=== PATIENT | female | born 1945 | race Caucasian/White ===

== ENCOUNTER 2021-05-20 13:29 | Inpatient (IN) | payer OTHER ==
[~2021-05-20] VITALS: Ht 154.9 cm; Wt 77.9 kg
[2021-05-20 14:33] LABS: BASOPHILS ABSOLUTE AUTO 0.05 K/mm3 (0.00-0.23); BASOPHILS PERCENT AUTO 1 % (0-2); EOSINOPHILS ABSOLUTE AUTO 0.05 K/mm3 (0.00-0.68); EOSINOPHILS PERCENT AUTO 1 % (0-6); Hematocrit 43.7 % (33.0-51.0); Hemoglobin 14.6 g/dL (11.5-16.0); IMMATURE GRAN ABSOLUTE AUTO 0.03 K/mm3 (0.00-0.10); IMMATURE GRAN PERCENT AUTO 0 % (0-1); LYMPHOCYTES ABSOLUTE AUTO 1.53 K/mm3 (0.84-5.20); LYMPHOCYTES PERCENT AUTO 18 % (21-46); MONOCYTES ABSOLUTE AUTO 0.41 K/mm3 (0.16-1.47); MONOCYTES PERCENT AUTO 5 % (4-13); Mean Corpuscular HGB 33.1 pg (26.0-34.0); Mean Corpuscular HGB Conc 33.4 g/dL (31.5-36.5); Mean Corpuscular Volume 99 fL (80-100); Mean Platelet Volume 11.4 fL (9.1-12.4); NEUTROPHILS ABSOLUTE AUTO 6.63 K/mm3 (1.96-9.15); NEUTROPHILS PERCENT AUTO 76 % (41-73); Platelet Count 149 K/mm3 (150-400); RDW Coefficient Variation 14.4 % (11.7-14.2); RDW Standard Deviation 52.1 fL (35.1-46.3); Red Blood Cell Count 4.41 M/mm3 (3.80-5.20)
[2021-05-20 14:50] LABS: Alanine Aminotransfer (ALT/SGP 60 U/L (12-78); Albumin, Blood 3.4 g/dL (3.4-5.0); Albumin/Globulin Ratio 0.7 (0.8-1.8); Alk Phos 291 U/L (50-136); Anion Gap 8 mmol/L (6-16); Aspartate Aminotrans (AST/SGOT 104 U/L (12-37); Bilirubin, Total 1.9 mg/dL (0.1-1.0); Blood Urea Nitrogen 10 mg/dL (8-24); Bun/Creatinine Ratio 11.8 (12.0-20.0); CO2, Blood 26 mmol/L (21-32); Calcium, Blood 10.7 mg/dL (8.5-10.1); Chloride, Blood 104 mmol/L (98-108); Creatinine, Blood 0.85 mg/dL (0.40-1.00); Globulin, Blood 4.9 g/dL (2.2-4.0); Glomerular Filtration Rate >60 (60-); Glucose, Blood 210 mg/dL (70-99); Potassium, Blood 4.1 mmol/L (3.5-5.5); Sodium, Blood 138 mmol/L (136-145); Total Protein, Blood 8.3 g/dL (6.4-8.2)
[2021-05-20 17:32] LABS: Anti-Xa UFH, PHA Monitoring <0.10 IU/mL; International Normalized Ratio 1.37; Prothrombin Time Results 14.1 Sec (9.7-11.5)
--- NOTE | 2021-05-20 22:07 | NUR ---
UPDATE/PT TRANSFER TO ICU PT ARRIVED TO UNIT FROM ED NO LONGER ON NITRO GTT. PT ON HEPARIN GTT AT THIS TIME. PT HYPERTENSIVE UPON ARRIVAL, SEE EHR. NO CP AT THIS TIME. OXYGEN SATURATION OVER 95% ON RA. ON TELE PT HAS ST ELEVATION. SEMICONDUCTOR BONDER NOTIFIED AUTO CARRIER DRIVER AND NO ORDER WAS PLACED TO D/C NITRO GTT PRIOR TO ARRIVAL TO UNIT. PLAN FOR PT TO CONT NITRO GTT, NURSING PRODUCT DEVELOPMENT SCIENTIST NOTIFIED. PT NOW ICU STATUS. PT'S FAMILY NOTIFIED OF PT TRANSFER TO HIGHER LEVEL OF CARE. PT'S SISTER HAS PT'S HOME MEDICATIONS, PT IS NOT AWARE. ICU NURSE NOTIFIED. REPORT GIVEN TO CELIO MESSINA. PT TRANPOSRTED BY WHEELCHAIR WITH ALL BELONGINGS BY MITCH AND CELIO FOSTER. ICU SEMICONDUCTOR BONDER HAS PT CHART.
[2021-05-20] MEDS ORDERED: GLIP5 PO (22:27)
[2021-05-20] MEDS ORDERED: POTCHL20ER PO (22:28)
[2021-05-20] MEDS ORDERED: Lisinopril2.5 MG PO (22:28)
[2021-05-20] MEDS ORDERED: HYDRA25 PO (22:29)
[2021-05-20] MEDS ORDERED: BENAZEPRIL-HCT1 EAC2 PO (22:30)
--- NOTE | 2021-05-20 23:04 | NUR ---
ASSUMED CARE AT 2135 PATIENT TRANSFERRED VIA WHEELCHAIR FROM PCU 2 TO ICU 4. TRANSFERRED SBA FROM WHEELCHAIR TO BED. PATIENT IS ALERT AND ORIENTED X4. FOLLOWS COMMANDS, MOVES ALL EXTREMETIES. 02 SATS 98% ON RA, DENIES SOB WITH EXERTION. HR SR @ 70s. PATIENT DENIES CP/PRESSURE UPON ARRIVAL TO UNIT. BP HYPERTENSIVE SYSTOLIC RANGING FROM 150s-180s. TITRATING NITRO PER ORDERS. HEPARIN gtt INF. PATIENT ABLE TO REPOSITION SELF IN BED. COMPLETED MED LIST WITH FAMILY MEMBER OVER THE PHONE WITH PATIENT. SEE SHIFT ASSESSMENT FOR MORE DETAILS.
[2021-05-21 03:29] LABS: BASOPHILS ABSOLUTE AUTO 0.04 K/mm3 (0.00-0.23); BASOPHILS PERCENT AUTO 1 % (0-2); EOSINOPHILS ABSOLUTE AUTO 0.03 K/mm3 (0.00-0.68); EOSINOPHILS PERCENT AUTO 0 % (0-6); Hemoglobin 12.1 g/dL (11.5-16.0); IMMATURE GRAN ABSOLUTE AUTO 0.01 K/mm3 (0.00-0.10); IMMATURE GRAN PERCENT AUTO 0 % (0-1); LYMPHOCYTES ABSOLUTE AUTO 1.51 K/mm3 (0.84-5.20); LYMPHOCYTES PERCENT AUTO 20 % (21-46); MONOCYTES PERCENT AUTO 7 % (4-13); Mean Corpuscular HGB 33.2 pg (26.0-34.0); Mean Corpuscular HGB Conc 33.6 g/dL (31.5-36.5); Mean Corpuscular Volume 99 fL (80-100); Mean Platelet Volume 11.3 fL (9.1-12.4); NEUTROPHILS ABSOLUTE AUTO 5.34 K/mm3 (1.96-9.15); NEUTROPHILS PERCENT AUTO 72 % (41-73); Platelet Count 86 K/mm3 (150-400); RDW Coefficient Variation 14.2 % (11.7-14.2); RDW Standard Deviation 51.8 fL (35.1-46.3); Red Blood Cell Count 3.64 M/mm3 (3.80-5.20); White Blood Cell Count 7.43 K/mm3 (4.00-11.30)
[2021-05-21 03:51] LABS: Alanine Aminotransfer (ALT/SGP 57 U/L (12-78); Albumin, Blood 2.6 g/dL (3.4-5.0); Albumin/Globulin Ratio 0.7 (0.8-1.8); Alk Phos 199 U/L (50-136); Anion Gap 6 mmol/L (6-16); Aspartate Aminotrans (AST/SGOT 216 U/L (12-37); Bilirubin, Total 1.4 mg/dL (0.1-1.0); Blood Urea Nitrogen 11 mg/dL (8-24); Bun/Creatinine Ratio 13.5 (12.0-20.0); CHOL/HDL RATIO 1.8; CO2, Blood 26 mmol/L (21-32); Calcium, Blood 9.9 mg/dL (8.5-10.1); Chloride, Blood 107 mmol/L (98-108); Cholesterol 117 mg/dL (50-200); Creatinine, Blood 0.81 mg/dL (0.40-1.00); Globulin, Blood 3.9 g/dL (2.2-4.0); Glomerular Filtration Rate >60 (60-); Glucose, Blood 202 mg/dL (70-99); HDL Cholesterol 65 mg/dL (>39); LDL/HDL RATIO 0.6; Low Density Lipoprotein Chol 42 mg/dL (0-110); Potassium, Blood 4.1 mmol/L (3.5-5.5); Sodium, Blood 139 mmol/L (136-145); Thyroid Stimulating Hormone 0.981 uIU/mL (0.360-4.800); Total Protein, Blood 6.5 g/dL (6.4-8.2); Triglycerides 49 mg/dL (30-160); Very Low Density Lipoprot Chol 9 mg/dL (6-32)
--- NOTE | 2021-05-21 06:47 | NUR ---
SHIFT SUMMARY PATIENT IS ALERT AND ORIENTED X4. FOLLOWING COMMANDS, MOVES ALL EXTREMETIES, COOPERATIVE WITH CARE. 02 SATS 96% ON RA, DENIES SOB. HR SR @84. BP STABLE. NITRO GTT OFF AT APPROX 0200. NO COMPLAINTS OF CP/PRESSURE SINCE ARRIVAL TO THE UNIT. HEPARIN GTT INF. HOSPITALIST AND AWARE OF PATIENT DECREASED PLT COUNT, REPEAT CBC AT 1200. TROPONINS INCREASED, DR. GILLIAM AWARE, PLANS FOR DATA ACQUISITION TECHNICIAN AND ECHO THIS AM. PATIENT UP TO BSC TO URINATE. CALL LIGHT IN REACH.
[2021-05-21 07:02] LABS: Influenza A, PCR NEGATIVE (NEGATIVE); Influenza B, PCR NEGATIVE (NEGATIVE); Resp Syncytial Virus, PCR NEGATIVE (NEGATIVE); SARS-Cov-2 (COVID-19) PCR, MMC NEGATIVE (NEGATIVE)
--- NOTE | 2021-05-21 07:12 | NUR ---
Received report from Betsy PICKENS. Patient awake in bed and tearful. Dr Slater at bedside speaking with patient and getting consent for laborer cheesemaking. Patient is full code prior to laborer cheesemaking and after back will want DNR. She is alert and oriented and is able to communnicate her needs. She has bilateral 20ga IV in AC's. Left IV infusing NS TKO and right infusing Heparin at 15 units/kg/hr. DR Slater added Metoprolol.She is on RA and sats 99%. HR 80's and SR with significant ST elevation.
--- NOTE | 2021-05-21 07:38 | NUR ---
Patient called daughter and she left to [facility] at 07 on monitor, NS TKO and Heparin at 15 units/kg/hr
--- NOTE | 2021-05-21 09:52 | NUR ---
Patient returned from [facility] and has sheath in groin for access tomorro, ballooned Prox. Circ. Dressing intact and site WNL's, no swelling , oozing, or hematoma. She also has TR band to Right wrist with 12 cc of air, no swelling, oozing or hematoma, wrist support in place. Leg restrained with sheet and have educated patient on not moving for at least 2 hours.
--- NOTE | 2021-05-21 11:30 | NUR ---
Echo done and Dr Slater by. Patient remains supine and right groin site WNL's and TR band WNLs and will start to release air. QT over [address] Patient denies any chest pain or discomfort. Patient received bed bath and linen change.
[2021-05-21 12:47] LABS: BASOPHILS ABSOLUTE AUTO 0.03 K/mm3 (0.00-0.23); BASOPHILS PERCENT AUTO 1 % (0-2); EOSINOPHILS ABSOLUTE AUTO 0.03 K/mm3 (0.00-0.68); EOSINOPHILS PERCENT AUTO 1 % (0-6); Hematocrit 33.2 % (33.0-51.0); Hemoglobin 10.7 g/dL (11.5-16.0); IMMATURE GRAN ABSOLUTE AUTO 0.02 K/mm3 (0.00-0.10); IMMATURE GRAN PERCENT AUTO 0 % (0-1); LYMPHOCYTES ABSOLUTE AUTO 1.21 K/mm3 (0.84-5.20); LYMPHOCYTES PERCENT AUTO 24 % (21-46); MONOCYTES ABSOLUTE AUTO 0.37 K/mm3 (0.16-1.47); MONOCYTES PERCENT AUTO 7 % (4-13); Mean Corpuscular HGB Conc 32.2 g/dL (31.5-36.5); Mean Corpuscular Volume 103 fL (80-100); Mean Platelet Volume 11.5 fL (9.1-12.4); NEUTROPHILS ABSOLUTE AUTO 3.43 K/mm3 (1.96-9.15); NEUTROPHILS PERCENT AUTO 67 % (41-73); Platelet Count 77 K/mm3 (150-400); RDW Coefficient Variation 14.5 % (11.7-14.2); RDW Standard Deviation 54.6 fL (35.1-46.3); Red Blood Cell Count 3.24 M/mm3 (3.80-5.20); White Blood Cell Count 5.09 K/mm3 (4.00-11.30)
--- NOTE | 2021-05-21 13:43 | NUR ---
No chnages to sites and both WNL's. US of abdomen done. Patient tolerated being fed.
--- NOTE | 2021-05-21 15:26 | NUR ---
Changed RAC dressing as was leaking from Heparin infusion. She has been resting between care. Made vanilla shake and she tolerated well. Will put PowerGlide in and remove both IV's. She hasd been tolertaing laying flat. Removed 10cc of air so far and no bleeding. She denies any chest pain.Right groin site WNL's and TR band as well.
--- NOTE | 2021-05-21 17:44 | NUR ---
PowerGlide placed in [place] and 20 ga LAC removed. Took acouple cc of air out of TR band and started leaking and messaged hematoma out and reapplied 2 cc of air and stop bleeding, Right groin still intact and site WNL's. Patient getting assisstance eating dinner. CBG 287 and covered with 3 units. VSS. She continues to deniy any pain.
--- NOTE | 2021-05-21 19:26 | NUR ---
ASSUMED CARE AT 1900 PATIENT IS ALERT AND ORIENTED X4, FOLLOWING COMMANDS AND ABLE TO MOVE ALL EXTREMETIES. 02 SATS 97% ON RA, LS CLEAR TO DIMINISHED. HR SR @70s, BP STABLE. PATIENT DENIES CP/PRESURE. RIGHT RADIAL SITE WITH SMALL HEMATOMA JUST BELOW TR BAND. WILL DEFLATE TR BAND. RIGHT GROIN SITE WITH SHEATH STILL IN PLACE, SITE WNL, DRESSING C/D/I. PULSES STRONG TO ALL EXTREMETIES. PATIENT LAYING FLAT. HEPARIN gtt INFUSING. CALL LIGHT IN REACH. SEE SHIFT ASSESSMENT FOR MORE DETAIL.
--- NOTE | 2021-05-22 01:48 | NUR ---
TR BAND OFF AT 0145, CLEAR DRESSING IN PLACE. SOME BRUISING AROUND SITE AND SMALL HEMATOMA THAT IS UNCHNAGED FROM START OF SHIFT. ARM BOARD IN PLACE AND PATIENT INSTRUCTED NOT TO USE HER ARM.
[2021-05-22 04:32] LABS: BASOPHILS ABSOLUTE AUTO 0.03 K/mm3 (0.00-0.23); BASOPHILS PERCENT AUTO 1 % (0-2); EOSINOPHILS ABSOLUTE AUTO 0.08 K/mm3 (0.00-0.68); EOSINOPHILS PERCENT AUTO 1 % (0-6); Hematocrit 31.8 % (33.0-51.0); Hemoglobin 10.5 g/dL (11.5-16.0); IMMATURE GRAN ABSOLUTE AUTO 0.01 K/mm3 (0.00-0.10); IMMATURE GRAN PERCENT AUTO 0 % (0-1); LYMPHOCYTES ABSOLUTE AUTO 1.22 K/mm3 (0.84-5.20); LYMPHOCYTES PERCENT AUTO 22 % (21-46); MONOCYTES PERCENT AUTO 7 % (4-13); Mean Corpuscular HGB 33.4 pg (26.0-34.0); Mean Corpuscular Volume 101 fL (80-100); Mean Platelet Volume 11.7 fL (9.1-12.4); NEUTROPHILS ABSOLUTE AUTO 3.92 K/mm3 (1.96-9.15); NEUTROPHILS PERCENT AUTO 69 % (41-73); Platelet Count 73 K/mm3 (150-400); RDW Coefficient Variation 14.3 % (11.7-14.2); RDW Standard Deviation 52.7 fL (35.1-46.3); Red Blood Cell Count 3.14 M/mm3 (3.80-5.20); White Blood Cell Count 5.66 K/mm3 (4.00-11.30)
[2021-05-22 04:47] LABS: Anion Gap 4 mmol/L (6-16); Blood Urea Nitrogen 16 mg/dL (8-24); Bun/Creatinine Ratio 19.7 (12.0-20.0); CO2, Blood 27 mmol/L (21-32); Calcium, Blood 9.3 mg/dL (8.5-10.1); Chloride, Blood 107 mmol/L (98-108); Creatinine, Blood 0.81 mg/dL (0.40-1.00); Glomerular Filtration Rate >60 (60-); Glucose, Blood 210 mg/dL (70-99); Potassium, Blood 4.3 mmol/L (3.5-5.5); Sodium, Blood 138 mmol/L (136-145)
--- NOTE | 2021-05-22 05:33 | NUR ---
SHIFT SUMMARY PATIENT REMAINS ALERT AND ORIENTED X4. 02 SATS >95% ON RA. LS CLEAR TO DIM. HR SR @60s. BP STABLE. PATIENT DENIES CP/PRESSURE. HEPARIN gtt INF. RIGHT RADIAL SITE WITH CLEAR DRESSING AND ARM BOARD IN PLACE, SOME BRUISING AROUND SITE WITH SMALL HEMATOMA UNCHAGED FROM START OF SHIFT. REIGHT FEMORAL SITE WNL, DRESSING C/D/I. PULSES STRONG IN ALL EXTREMETIES. PATIENT USED BEDPAN. CONSTANT REMINDER TO NOT BEND LEGS. PATIENT SLEPT MOST THE NIGHT. CALL LIGHT IN REACH.
--- NOTE | 2021-05-22 07:30 | NUR ---
ASSUMED CARE REPORT FROM MAYURI PICKENS AT 0700. PT RESTING IN BED. DENIES CP, SOB OR OTHER COMPLAINTS. PLAN TO TAKE TO LEARNING SOLUTIONS SPECIALIST TOMORROW. HEPARIN GTT AT 15 UNITS/KG/HR. SHEATH TO RIGHT GROIN, NO SWELLING, HEMATOMA NOTED. RIGHT RADIAL ACCESS SITE c BRUISING, NO SWELLING. DRESSING C/D/I. SR, RATE 60'S. BP STABLE. WILL CONTINUE TO MONITOR.
--- NOTE | 2021-05-22 17:45 | NUR ---
SHIFT SUMMARY NO ACUTE CHANGES THIS SHIFT. HEPARIN GTT CONTINUES AT 15 UNITS/KG/HR. SHEATH TO RIGHT GROIN STABLE, NO HEMATOMA, SWELLING OR BRUISING NOTED. PLAN TO RETURN TO CANCER PROGRAM CONSULTANT IN AM, NPO AFTER 0000. VSS. WILL CONTINUE TO MONITOR UNTIL REPORT TO ONCOMING NURSE.
--- NOTE | 2021-05-22 19:00 | NUR ---
REPORT RECEIVED FROM CELIO WISE. BEDSIDE ASSESSMENT OF THE RIGHT GROIN SITE TOGETHER. NO EDEMA, NO OOZING, NO BRUISING NOTED. TO PRESSURE BAG. GOOD COLOR AND SENSATION AND PULSES IN THE LEG. HEPARIN GTT @ 15U/KG/HR.
[2021-05-23 00:08] LABS: HBSAG SCREEN Negative (Negative); HCV AB <0.1 (0.0-0.9); HEP A AB, IGM Positive (Negative); HEP B CORE AB, IGM Negative (Negative)
--- NOTE | 2021-05-23 00:16 | NUR ---
SHRUTI IS CONTINUING TO LIE FLAT WITH THE RIGHT GROIN SITE INTACT AND SET TO PRESSURE BAG. SHE IS USING THE BED ROSS FOR URINATION AND TOLERATING MOVEMENT WELL WITHOUT FLEXING THAT RIGHT HIP JOINT. THE ANTI-XA WAS JUST DRAWN AND SENT TO LAB, WILL AWAIT RESULTS AND ORDERS FROM PHARMACY. SHE IS LOOKING FORWARD TO HER PROCEDURE TOMORROW SO SHE NO LONGER HAS TO LAY FLAT.
[2021-05-23 04:17] LABS: BASOPHILS ABSOLUTE AUTO 0.02 K/mm3 (0.00-0.23); BASOPHILS PERCENT AUTO 0 % (0-2); EOSINOPHILS ABSOLUTE AUTO 0.09 K/mm3 (0.00-0.68); EOSINOPHILS PERCENT AUTO 1 % (0-6); Hematocrit 31.1 % (33.0-51.0); Hemoglobin 10.3 g/dL (11.5-16.0); IMMATURE GRAN ABSOLUTE AUTO 0.02 K/mm3 (0.00-0.10); IMMATURE GRAN PERCENT AUTO 0 % (0-1); LYMPHOCYTES PERCENT AUTO 21 % (21-46); MONOCYTES ABSOLUTE AUTO 0.41 K/mm3 (0.16-1.47); MONOCYTES PERCENT AUTO 7 % (4-13); Mean Corpuscular HGB 33.2 pg (26.0-34.0); Mean Corpuscular HGB Conc 33.1 g/dL (31.5-36.5); Mean Corpuscular Volume 100 fL (80-100); Mean Platelet Volume 11.5 fL (9.1-12.4); NEUTROPHILS ABSOLUTE AUTO 4.44 K/mm3 (1.96-9.15); NEUTROPHILS PERCENT AUTO 71 % (41-73); Platelet Count 77 K/mm3 (150-400); RDW Coefficient Variation 14.3 % (11.7-14.2); RDW Standard Deviation 52.5 fL (35.1-46.3); White Blood Cell Count 6.28 K/mm3 (4.00-11.30)
[2021-05-23 04:33] LABS: Anion Gap 4 mmol/L (6-16); Blood Urea Nitrogen 16 mg/dL (8-24); Bun/Creatinine Ratio 20.8 (12.0-20.0); CO2, Blood 26 mmol/L (21-32); Calcium, Blood 9.4 mg/dL (8.5-10.1); Chloride, Blood 110 mmol/L (98-108); Creatinine, Blood 0.77 mg/dL (0.40-1.00); Glomerular Filtration Rate >60 (60-); Glucose, Blood 189 mg/dL (70-99); Potassium, Blood 4.1 mmol/L (3.5-5.5); Sodium, Blood 140 mmol/L (136-145)
[2021-05-23 05:26] LABS: Alanine Aminotransfer (ALT/SGP 46 U/L (12-78); Aspartate Aminotrans (AST/SGOT 107 U/L (12-37)
--- NOTE | 2021-05-23 05:55 | NUR ---
SUMMARY: SHRUTI CONTINUES ON ROOM AIR, SATS >93%, HEART RATE STABLE RUNNING IN THE 60'S WITH BLOOD PRESSURE WNL, PULSES REMAIN PALPABLE, RIGHT GROIN SITE C/D/I, PT'S RIGHT ARM CONTINUES WITH BRUISING NOTED. PT HAS BEEN SUPINE AND NOT MOVING THE RIGHT LEG EXCEPT FOR SMALL MOVEMENTS WHEN GETTING ON AND OFF THE BED ROSS. SHE HAS BEEN SLEEPING ON AND OFF T/O THE NIGHT.
--- NOTE | 2021-05-23 06:38 | NUR ---
PT TO LEATHER WHITENER WITH TEAM. HEPARIN DISCONNECTED FOR TRANSPORT. DR. GILLIAM ALREADY IN TO SEE PATIENT.
--- NOTE | 2021-05-23 08:38 | NUR ---
AM NOTE... PT RETURNED FROM THE DIESEL TRUCK MECHANIC AT 0805, A&Ox4 A LITTLE SLEEPY. THE PT'S VS STABLE AND DENIES ANY CHEST PAIN/PRESSURE. RIGHT GROIN SHEATH IN PLACE, THE SITE IS STABLE WITH NO BLEEDING, SWELLING OR HEMATOMA NOTED, THE PT'S RIGHT LEG IS PINK AND WARM WITH GOOD DISTAL PULSES. THE PT IS IN SR W/BBB IN THE HIGH 50'S-60'S, BP STABLE. NO EDEMA NOTED ON ASSESSMENT. PT IS ON RA WITH O2 SATS >90% L/S CLEAR T/O. BT PRESENT AND HYPOACTIVE, ABD IS SLIGHTLY FIRM BUT NONTENDER TO PALPATION. CALL LIGHT IN REACH WILL CONTINUE TO MONITOR.
--- NOTE | 2021-05-23 15:12 | NUR ---
PT UPDATE.... SHEATH WAS REMOVED BY ADAM PICKENS AND MANUAL PRESSURE WAS HELD AT THE SITE, NO BLEEDING SWELLING OR HEMATOMA NOTED. THE PT WAS GIVEN 2MG IV MORPHINE TO HELP TOLERATE THE PROCEDURE. THE PT'S VS STABLE. WILL CONTINUE TO MONITOR.
--- NOTE | 2021-05-23 18:01 | NUR ---
SHIFT SUMMARY.... NO ACUTE NEGATIVE CHANGES NOTED THIS SHIFT. THE PT'S VS STABLE. THE SHEATH WAS REMOVED AT 1500, AT 1700 THE SITE CONTINUES TO BE STABLE, HER HEAD WAS RAISED 30 DEGREES TO EAT DINNER, AFTER THIS CHANGE THE PT'S SITE CONTINUES TO BE STABLE. THE PT HAS HAD VISITORS AT THE BEDSIDE FOR MOST OF THIS SHIFT. SHE HAS NOT HAD A BM. CALL LIGHT IN REACH WILL CONTINUE TO MONTOR UNTIL REPORT IS GIVEN TO ONCOMING RN.
--- NOTE | 2021-05-23 19:11 | NUR ---
ASSUMED PT CARE FROM CELIO SU PT LYING FLAT IN BED D/T RECENT SHEATH REMOVAL FROM RIGHT GROIN. SITE IS STABLE. SLIGHT TENDERNESS, BUT NO SIGNS OF HEMATOMA OR OOZING NOTED. R RADIAL SITE IS ALSO STABLE WITH NO OOZING OR HEMATOMA NOTED. PT DOES HAVE BRUISING TO BOTH SITES. PT IS ALERT AND ORIENTED. FAMILY AT BEDSIDE ASKING QUESTIONS ABOUT DISCHARGE TOMORROW. INFORMED THEM OF THE PROCESS REGARDING DISCHARGE. FAMILY REQUESTED THAT THEY BE HERE FOR WHEN THE NURSE GOES OVER THE DISCHARGE INSTRUCTIONS. VSS, SEE FLOWSHEET. SEE SHIFT SUMMARY FOR FURTHER DETAILS
--- NOTE | 2021-05-23 22:32 | NUR ---
R GROIN HEMATOMA SITE REMAINED STABLE SINCE SHEATH WAS REMOVED AT 1500. PT REQUESTED TO GET UP TO COMMODE TO HAVE A BM D/T NOT BEING SUCCESSFUL ON BEDPAN. PT ASSISTED TO COMMODE AT 2200. AFTER ASSISTING PT BACK TO BED, SITE WAS CHECKED AGAIN. NO OOZING WAS NOTED, BUT HEMATOMA HAD FORMED, WHICH WAS >10MM. PRESSURE HELD UNTIL FEM STOP WAS OBTAINED AND APPLIED. NO PRESSURE ADDED TO FEMSTOP; RATHER IT WAS JUST CINCHED DOWN. PT DENIES ANY NUMBNESS/TINGLING TO DISTAL EXTREMITY. PULSES REMAIN PALPABLE AND STRONG WITH SPO2 TO RIGHT TOE READING 100%. OUTER EDGES OF HEMATOMA MARKED. BP STABLE. PT C/O TENDERNESS TO SITE. WILL CONTINUE TO MONITOR FREQUENTLY TO ENSURE STABILITY OF SITE.
--- NOTE | 2021-05-23 23:21 | NUR ---
REASSESSMENT R GROIN SITE REMAINS WITH HEMATOMA WHICH IS UNCHANGED OUTSIDE OF MARKED AREAS. FEM STOP REMAINS IN PLACE WITHOUT AIR IN THE BALLOON. CONTINUES WITHOUT OOZING. PT REMAINS LYING FLAT WITHOUT GROIN FLEXION. DENIES NUMBNESS/TINGLING TO DISTAL EXTREMITIES. PULSES REMAIN PALPABLE AND STRONG. SPO2 MONITOR ON RIGHT DISTAL TOE WITH GOOD PLETH AND PERFUSION WITH READING >90%
--- NOTE | 2021-05-24 00:09 | NUR ---
FEM STOP REMOVED HEMATOMA HAS SLIGHTLY DISSIPATED. BRUISING NOTED TO SURROUNDING AREA. NO FURTHER GROWTH OUTSIDE OF MARKED AREAS.
--- NOTE | 2021-05-24 05:05 | NUR ---
END OF SHIFT SUMMARY NO SIGNIFICANT CHANGES. SITE REMAINED STABLE AFTER FEM STOP WAS REMOVED. DIFFUSE BRUISING NOTED, BUT MOSTLY HEMATOMA HAS DISSIPATED. PT HAS REMAIN LYING SUPINE WITH RLE IN ALIGNMENT TO PREVENT ANOTHER HEMATOMA. NO OOZING FROM SITE. GOOD PERFUSION AND PULSES TO DISTAL LIMB. PT SLEPT MOST OF SHIFT. WOULD UTILIZE CALL LIGHT FOR BEDPAN USE. WILL CONTINUE TO MONITOR UNTIL REPORT IS HANDED OFF TO ONCOMING RN.
[2021-05-24] MEDS ORDERED: CLOP75 PO (13:25)
[2021-05-24] MEDS ORDERED: ASPI81CH PO (13:25)
[2021-05-24] MEDS ORDERED: METO25ER PO (13:27)
[2021-05-24] MEDS ORDERED: ATOR10 PO (13:27)
--- NOTE | 2021-05-24 14:59 | NUR ---
PATIENT DISCHARGED HOME AT 1420. PT'S DAUGHTER AND SISTER PRESENT AT BEDSIDE FOR DISCHARGE INSTRUCTIONS. D/C PAPERWORK SENT W PATIENT, ALL BELONGINGS SENT WITH PATIENT. GROIN AND RADIAL SITE WNL AT TIME OF DISCHARGE.
== END 2021-05-24 14:22 | disposition home or self-care (01) | DRG 247 ==
LOC: ER 13:29 → ICUE 20:28 → PCU 20:28 → ICUE 21:34 → ICUW 05-23 07:54
PROVIDERS: Internal Medicine; Internal Medicine Cardiovascular Disease; Physician Assistant; Student in an Organized Health Care Education/Training Program; ADMIT Internal Medicine
PROC: 02C03ZZ Extirpation of Matter from Coronary Artery, One Artery, Percutaneous Approach (ICD-10-PCS; principal; 2021-05-21)
PROC: 02703ZZ Dilation of Coronary Artery, One Artery, Percutaneous Approach (ICD-10-PCS; 2021-05-21)
PROC: B2111ZZ Fluoroscopy of Multiple Coronary Arteries using Low Osmolar Contrast (ICD-10-PCS; 2021-05-21)
PROC: 027035Z Dilation of Coronary Artery, One Artery with Two Drug-eluting Intraluminal Devices, Percutaneous Approach (ICD-10-PCS; 2021-05-23)
PROC: B2111ZZ Fluoroscopy of Multiple Coronary Arteries using Low Osmolar Contrast (ICD-10-PCS; 2021-05-23)
DX: I21.4 Non-ST elevation (NSTEMI) myocardial infarction (principal); I16.1 Hypertensive emergency; I97.630 Postprocedural hematoma of a circulatory system organ or structure following a cardiac catheterization; B15.9 Hepatitis A without hepatic coma; E66.9 Obesity, unspecified; Z20.822 Contact with and (suspected) exposure to COVID-19; Z66 Do not resuscitate; K76.0 Fatty (change of) liver, not elsewhere classified; I10 Essential (primary) hypertension; E11.9 Type 2 diabetes mellitus without complications; E78.5 Hyperlipidemia, unspecified; K21.9 Gastro-esophageal reflux disease without esophagitis; R91.1 Solitary pulmonary nodule; D69.6 Thrombocytopenia, unspecified; Z68.31 Body mass index [BMI] 31.0-31.9, adult; Z88.1 Allergy status to other antibiotic agents; Z88.8 Allergy status to other drugs, medicaments and biological substances; Z79.84 Long term (current) use of oral hypoglycemic drugs; Z79.899 Other long term (current) drug therapy; Y84.0 Cardiac catheterization as the cause of abnormal reaction of the patient, or of later complication, without mention of misadventure at the time of the procedure
CPT/HCPCS: 0241U; 36415; 71045; 71275; 76705; 76937; 80048; 80053; 80061; 80074; 82947; 83036; 83690; 83880; 84443; 84450; 84460; 84484; 85025; 85347; 85520; 85610; 85730; 92920; 93005; 93010; 93454; 96365; 96366; 96368; 96375; 96376; 99152; 99153; 99285-25; A9270; C1725; C1751; C1753; C1757; C1760; C1769; C1874; C1887; C1894; C8929; C9600; G0278; J1644; J2250; J2270; J3010; J7030; J7040; J7050; Q9957; Q9967

== ENCOUNTER 2021-11-07 13:24 | Emergency (ER) | payer OTHER ==
[~2021-11-07] VITALS: Ht 154.9 cm; Wt 67.6 kg
[~2021-11-07 13:24] MED LIST: ASPI81CH PO; ATOR10 PO; BENAZEPRIL-HCT1 EAC2 PO; CLOP75 PO; GLIP5 PO; HYDRA25 PO; Lisinopril2.5 MG PO; METO25ER PO; POTCHL20ER PO
[2021-11-07 15:00] LABS: BASOPHILS ABSOLUTE AUTO 0.04 K/mm3 (0.00-0.23); BASOPHILS PERCENT AUTO 1 % (0-2); EOSINOPHILS ABSOLUTE AUTO 0.11 K/mm3 (0.00-0.68); EOSINOPHILS PERCENT AUTO 2 % (0-6); Hematocrit 27.9 % (33.0-51.0); IMMATURE GRAN ABSOLUTE AUTO 0.01 K/mm3 (0.00-0.10); IMMATURE GRAN PERCENT AUTO 0 % (0-1); LYMPHOCYTES ABSOLUTE AUTO 1.22 K/mm3 (0.84-5.20); LYMPHOCYTES PERCENT AUTO 23 % (21-46); MONOCYTES ABSOLUTE AUTO 0.31 K/mm3 (0.16-1.47); MONOCYTES PERCENT AUTO 6 % (4-13); Mean Corpuscular HGB 31.6 pg (26.0-34.0); Mean Corpuscular HGB Conc 32.3 g/dL (31.5-36.5); Mean Corpuscular Volume 98 fL (80-100); Mean Platelet Volume 12.3 fL (9.1-12.4); NEUTROPHILS ABSOLUTE AUTO 3.61 K/mm3 (1.96-9.15); NEUTROPHILS PERCENT AUTO 68 % (41-73); Platelet Count 145 K/mm3 (150-400); RDW Standard Deviation 53.6 fL (35.1-46.3); Red Blood Cell Count 2.85 M/mm3 (3.80-5.20)
[2021-11-07 15:15] LABS: International Normalized Ratio 1.28; Prothrombin Time Results 13.2 Sec (9.7-11.5)
[2021-11-07 15:49] LABS: Albumin, Blood 2.7 g/dL (3.4-5.0); Albumin/Globulin Ratio 0.7 (0.8-1.8); Bun/Creatinine Ratio 18.6 (12.0-20.0); Calcium, Blood 9.5 mg/dL (8.5-10.1); Creatinine, Blood 1.18 mg/dL (0.40-1.00); Globulin, Blood 4.1 g/dL (2.2-4.0); Potassium, Blood 3.7 mmol/L (3.5-5.5); Total Protein, Blood 6.8 g/dL (6.4-8.2)
== END 2021-11-07 17:30 | disposition home or self-care (01) ==
LOC: ER 13:24
PROVIDERS: Physician Assistant
DX: R18.8 Other ascites (principal); I25.2 Old myocardial infarction; I10 Essential (primary) hypertension; E11.9 Type 2 diabetes mellitus without complications; Z88.8 Allergy status to other drugs, medicaments and biological substances; Z79.82 Long term (current) use of aspirin; Z79.899 Other long term (current) drug therapy; Z87.891 Personal history of nicotine dependence
CPT/HCPCS: 80053; 85025; 85610; 99281

== ENCOUNTER 2021-12-14 11:48 | Emergency (ER) | payer OTHER ==
[~2021-12-14] VITALS: Ht 154.9 cm; Wt 67.6 kg
[2021-12-14 14:19] LABS: BASOPHILS ABSOLUTE AUTO 0.01 K/mm3 (0.00-0.23); BASOPHILS PERCENT AUTO 0 % (0-2); EOSINOPHILS ABSOLUTE AUTO 0.03 K/mm3 (0.00-0.68); EOSINOPHILS PERCENT AUTO 1 % (0-6); Hematocrit 28.8 % (33.0-51.0); Hemoglobin 9.7 g/dL (11.5-16.0); IMMATURE GRAN ABSOLUTE AUTO 0.02 K/mm3 (0.00-0.10); IMMATURE GRAN PERCENT AUTO 1 % (0-1); LYMPHOCYTES ABSOLUTE AUTO 0.59 K/mm3 (0.84-5.20); LYMPHOCYTES PERCENT AUTO 14 % (21-46); MONOCYTES ABSOLUTE AUTO 0.22 K/mm3 (0.16-1.47); MONOCYTES PERCENT AUTO 5 % (4-13); Mean Corpuscular HGB Conc 33.7 g/dL (31.5-36.5); Mean Corpuscular Volume 95 fL (80-100); NEUTROPHILS ABSOLUTE AUTO 3.44 K/mm3 (1.96-9.15); NEUTROPHILS PERCENT AUTO 80 % (41-73); Platelet Count 112 K/mm3 (150-400); RDW Coefficient Variation 14.3 % (11.7-14.2); RDW Standard Deviation 50.1 fL (35.1-46.3); Red Blood Cell Count 3.03 M/mm3 (3.80-5.20); White Blood Cell Count 4.31 K/mm3 (4.00-11.30)
[2021-12-14 14:20] LABS: International Normalized Ratio 1.24; Prothrombin Time Results 12.8 Sec (9.7-11.5)
[2021-12-14 14:24] LABS: Albumin, Blood 2.7 g/dL (3.4-5.0); Albumin/Globulin Ratio 0.7 (0.8-1.8); Bilirubin, Total 1.3 mg/dL (0.1-1.0); Bun/Creatinine Ratio 15.3 (12.0-20.0); Calcium, Blood 8.9 mg/dL (8.5-10.1); Creatinine, Blood 1.11 mg/dL (0.40-1.00); Globulin, Blood 4.1 g/dL (2.2-4.0); Potassium, Blood 3.9 mmol/L (3.5-5.5); Total Protein, Blood 6.8 g/dL (6.4-8.2)
== END 2021-12-14 17:06 | disposition home or self-care (01) ==
LOC: ER 11:48
PROVIDERS: Emergency Medicine
DX: R18.8 Other ascites (principal); I25.2 Old myocardial infarction; E11.9 Type 2 diabetes mellitus without complications; I10 Essential (primary) hypertension; Z79.82 Long term (current) use of aspirin; Z79.899 Other long term (current) drug therapy; Z95.5 Presence of coronary angioplasty implant and graft; Z87.891 Personal history of nicotine dependence
CPT/HCPCS: 36415; 49083; 80053; 85025; 85610; 96365-59; 99284-25; P9047

== ENCOUNTER 2022-02-05 14:33 | Day surgery (SDC) | payer OTHER ==
[2022-02-05] MEDS ORDERED: ALBU90OI INH (17:10)
[2022-02-05] MEDS ORDERED: HYDCHL25 PO (17:11)
[2022-02-05] MEDS ORDERED: BENA20 (17:11)
[2022-02-05] MEDS ORDERED: VITAMIN B122500 MC1 PO (17:12)
[2022-02-05] MEDS ORDERED: HYDRA25 PO (17:13)
[2022-02-05] MEDS ORDERED: POTCHL20ER PO (17:13)
[2022-02-05] MEDS ORDERED: PANT20 PO (17:14)
== END 2022-02-05 17:34 | disposition home or self-care (01) ==
LOC: ATC 14:33 → US 14:33 → ATC 17:34
DX: K74.60 Unspecified cirrhosis of liver (principal); R18.8 Other ascites; I25.2 Old myocardial infarction; E11.9 Type 2 diabetes mellitus without complications; I10 Essential (primary) hypertension
CPT/HCPCS: 49083; 96365; P9047

== ENCOUNTER 2022-03-11 08:33 | Day surgery (SDC) | payer OTHER ==
[~2022-03-11 08:33] MED LIST changes: +ALBU90OI INH; +BENA20; +HYDCHL25 PO; +PANT20 PO; +VITAMIN B122500 MC1 PO
== END 2022-03-11 11:40 | disposition home or self-care (01) ==
LOC: US 08:33
DX: K74.60 Unspecified cirrhosis of liver (principal); R18.8 Other ascites
CPT/HCPCS: 49083; 96365; P9047

== ENCOUNTER 2022-04-10 08:27 | Day surgery (SDC) | payer OTHER | END 2022-04-10 11:36 | disposition home or self-care (01) | LOC: US 08:27 → ATC 08:27 → US 09:00 → ATC 11:36 | DX: R18.8 Other ascites (principal); K74.60 Unspecified cirrhosis of liver | CPT/HCPCS: 49083; P9047 ==

== ENCOUNTER 2022-05-25 08:21 | Day surgery (SDC) | payer OTHER | END 2022-05-25 23:08 | disposition home or self-care (01) | LOC: US 08:21 | DX: R18.8 Other ascites (principal); K74.60 Unspecified cirrhosis of liver | CPT/HCPCS: 49083; 96365; 96366; P9047 ==

== ENCOUNTER 2022-06-18 18:16 | Emergency (ER) | payer OTHER ==
[~2022-06-18] VITALS: Ht 154.9 cm; Wt 63.5 kg
[2022-06-18 18:57] LABS: BASOPHILS ABSOLUTE AUTO 0.03 K/mm3 (0.00-0.23); BASOPHILS PERCENT AUTO 1 % (0-2); EOSINOPHILS ABSOLUTE AUTO 0.06 K/mm3 (0.00-0.68); EOSINOPHILS PERCENT AUTO 1 % (0-6); Hematocrit 32.9 % (33.0-51.0); Hemoglobin 11.1 g/dL (11.5-16.0); IMMATURE GRAN ABSOLUTE AUTO 0.02 K/mm3 (0.00-0.10); IMMATURE GRAN PERCENT AUTO 0 % (0-1); LYMPHOCYTES ABSOLUTE AUTO 0.78 K/mm3 (0.84-5.20); LYMPHOCYTES PERCENT AUTO 13 % (21-46); MONOCYTES ABSOLUTE AUTO 0.44 K/mm3 (0.16-1.47); MONOCYTES PERCENT AUTO 8 % (4-13); Mean Corpuscular HGB 31.8 pg (26.0-34.0); Mean Corpuscular HGB Conc 33.7 g/dL (31.5-36.5); Mean Corpuscular Volume 94 fL (80-100); Mean Platelet Volume 10.9 fL (9.1-12.4); NEUTROPHILS PERCENT AUTO 77 % (41-73); Platelet Count 153 K/mm3 (150-400); RDW Coefficient Variation 13.8 % (11.7-14.2); RDW Standard Deviation 47.8 fL (35.1-46.3); Red Blood Cell Count 3.49 M/mm3 (3.80-5.20); White Blood Cell Count 5.83 K/mm3 (4.00-11.30)
[2022-06-18 19:14] LABS: Albumin/Globulin Ratio 0.7 (0.8-1.8); Bilirubin, Total 1.1 mg/dL (0.1-1.0); Bun/Creatinine Ratio 35.3 (12.0-20.0); Calcium, Blood 10.3 mg/dL (8.5-10.1); Creatinine, Blood 1.16 mg/dL (0.40-1.00); Globulin, Blood 4.3 g/dL (2.2-4.0); Potassium, Blood 4.3 mmol/L (3.5-5.5); Total Protein, Blood 7.3 g/dL (6.4-8.2)
[2022-06-19 00:45] VITALS: BP 122/71
== END 2022-06-19 00:59 | disposition home or self-care (01) ==
LOC: ER 18:16
PROVIDERS: Student in an Organized Health Care Education/Training Program
DX: R18.8 Other ascites (principal); E87.1 Hypo-osmolality and hyponatremia; R63.0 Anorexia; Z88.8 Allergy status to other drugs, medicaments and biological substances; Z88.1 Allergy status to other antibiotic agents; Z79.899 Other long term (current) drug therapy; Z79.82 Long term (current) use of aspirin; E11.9 Type 2 diabetes mellitus without complications; I25.2 Old myocardial infarction; I10 Essential (primary) hypertension; Z87.891 Personal history of nicotine dependence
CPT/HCPCS: 36415; 49083; 80053; 85025; 85730; 96360-59; 96361-59; 99284-25; J7030

== ENCOUNTER 2022-06-20 16:31 | Emergency (ER) | payer OTHER ==
[~2022-06-20] VITALS: Ht 154.9 cm; Wt 68.0 kg
[2022-06-20 17:15] LABS: BASOPHILS ABSOLUTE AUTO 0.02 K/mm3 (0.00-0.23); BASOPHILS PERCENT AUTO 0 % (0-2); EOSINOPHILS ABSOLUTE AUTO 0.04 K/mm3 (0.00-0.68); EOSINOPHILS PERCENT AUTO 1 % (0-6); Hematocrit 33.1 % (33.0-51.0); Hemoglobin 11.1 g/dL (11.5-16.0); IMMATURE GRAN ABSOLUTE AUTO 0.01 K/mm3 (0.00-0.10); IMMATURE GRAN PERCENT AUTO 0 % (0-1); LYMPHOCYTES ABSOLUTE AUTO 0.69 K/mm3 (0.84-5.20); LYMPHOCYTES PERCENT AUTO 13 % (21-46); MONOCYTES ABSOLUTE AUTO 0.39 K/mm3 (0.16-1.47); MONOCYTES PERCENT AUTO 8 % (4-13); Mean Corpuscular HGB 31.4 pg (26.0-34.0); Mean Corpuscular HGB Conc 33.5 g/dL (31.5-36.5); Mean Corpuscular Volume 94 fL (80-100); Mean Platelet Volume 11.5 fL (9.1-12.4); NEUTROPHILS PERCENT AUTO 78 % (41-73); Platelet Count 130 K/mm3 (150-400); RDW Coefficient Variation 13.6 % (11.7-14.2); RDW Standard Deviation 46.9 fL (35.1-46.3); Red Blood Cell Count 3.54 M/mm3 (3.80-5.20); White Blood Cell Count 5.15 K/mm3 (4.00-11.30)
[2022-06-20 17:38] LABS: Albumin, Blood 2.9 g/dL (3.4-5.0); Albumin/Globulin Ratio 0.7 (0.8-1.8); Bun/Creatinine Ratio 35.7 (12.0-20.0); Calcium, Blood 9.4 mg/dL (8.5-10.1); Creatinine, Blood 1.15 mg/dL (0.40-1.00); Globulin, Blood 3.9 g/dL (2.2-4.0); Total Protein, Blood 6.8 g/dL (6.4-8.2)
[2022-06-20 18:11] VITALS: BP 157/70
== END 2022-06-20 18:05 | disposition home or self-care (01) ==
LOC: ER 16:31
PROVIDERS: Student in an Organized Health Care Education/Training Program
DX: R60.0 Localized edema (principal); Z88.8 Allergy status to other drugs, medicaments and biological substances; Z88.1 Allergy status to other antibiotic agents; Z79.899 Other long term (current) drug therapy; Z79.82 Long term (current) use of aspirin; I25.2 Old myocardial infarction; E11.9 Type 2 diabetes mellitus without complications; I10 Essential (primary) hypertension; Z87.891 Personal history of nicotine dependence
CPT/HCPCS: 36415; 80053; 85025; 93005; 93010; 99284-25

== ENCOUNTER 2022-07-02 14:44 | Day surgery (SDC) | payer OTHER ==
--- NOTE | 2022-07-02 17:00 | NUR ---
UPDATE/NO ALBUMIN GIVEN ORDERED TO GIVE PT 50 GM OF IV ALBUMIN POST PARA. THIS RN AND TWO OTHER RN'S FROM DAY SURGERY ATTEMPTED TO GET IV ACCESS. UNABLE TO DO SO. PT'S ORDERING MD DR. STEWART NOTIFIED OF INABILITY TO OBTAIN IV ACCESS. PT TO PRIVATE VEHICLE WITH SISTER AT 1700. PLAN FOR IV WITH ULTRASOUND NEXT APT.
== END 2022-07-02 23:17 | disposition home or self-care (01) ==
LOC: US 14:44
DX: K74.60 Unspecified cirrhosis of liver (principal); R18.8 Other ascites
CPT/HCPCS: 49083; P9047

== ENCOUNTER 2022-07-07 12:35 | Inpatient (IN) | payer OTHER ==
[~2022-07-07] VITALS: Ht 162.6 cm; Wt 52.6 kg
[2022-07-07 13:36] LABS: BASOPHILS ABSOLUTE AUTO 0.03 K/mm3 (0.00-0.23); BASOPHILS PERCENT AUTO 0 % (0-2); EOSINOPHILS ABSOLUTE AUTO 0.03 K/mm3 (0.00-0.68); EOSINOPHILS PERCENT AUTO 0 % (0-6); Hematocrit 36.6 % (33.0-51.0); Hemoglobin 12.3 g/dL (11.5-16.0); IMMATURE GRAN ABSOLUTE AUTO 0.02 K/mm3 (0.00-0.10); IMMATURE GRAN PERCENT AUTO 0 % (0-1); LYMPHOCYTES ABSOLUTE AUTO 0.86 K/mm3 (0.84-5.20); LYMPHOCYTES PERCENT AUTO 11 % (21-46); MONOCYTES PERCENT AUTO 4 % (4-13); Mean Corpuscular HGB 31.3 pg (26.0-34.0); Mean Corpuscular HGB Conc 33.6 g/dL (31.5-36.5); Mean Corpuscular Volume 93 fL (80-100); Mean Platelet Volume 11.5 fL (9.1-12.4); NEUTROPHILS ABSOLUTE AUTO 6.91 K/mm3 (1.96-9.15); NEUTROPHILS PERCENT AUTO 85 % (41-73); Platelet Count 189 K/mm3 (150-400); RDW Coefficient Variation 13.9 % (11.7-14.2); RDW Standard Deviation 47.9 fL (35.1-46.3); Red Blood Cell Count 3.93 M/mm3 (3.80-5.20); White Blood Cell Count 8.15 K/mm3 (4.00-11.30)
[2022-07-07 14:04] LABS: Albumin, Blood 2.7 g/dL (3.4-5.0); Albumin/Globulin Ratio 0.8 (0.8-1.8); Bilirubin, Direct 0.2 mg/dL (0.0-0.3); Bilirubin, Indirect 0.5 mg/dL (0.1-0.7); Bilirubin, Total 0.7 mg/dL (0.1-1.0); Bun/Creatinine Ratio 55.3 (12.0-20.0); Calcium, Blood 9.3 mg/dL (8.5-10.1); Creatinine, Blood 1.41 mg/dL (0.40-1.00); Globulin, Blood 3.5 g/dL (2.2-4.0); Magnesium, Blood 1.6 mg/dL (1.6-2.4); Total Protein, Blood 6.2 g/dL (6.4-8.2)
[2022-07-07 14:37] LABS: Source, Urine Straight Cath
[2022-07-07 14:47] LABS: Appearance, Urine Clear (Clear); Bilirubin, Urine Neg (Neg); Blood, Urine Neg (Neg); Color, Urine Yellow (P-Yellow); Glucose Qualitative, Urine Neg (Neg); Ketones, Urine Neg (Neg); Leukocyte Esterase, Urine Neg (Neg); Nitrite, Urine Neg (Neg); Protein, Urine Neg (Neg); Urobilinogen, Urine NORM (Normal)
[2022-07-07 14:53] LABS: Base Excess Venous -8.8 mmol/L; Bicarbonate Venous 18.2 mmol/L (24.0-30.0); PCO2 Venous 32.3 mmHg (38-42); pH Blood Venous 7.33 (7.34-7.37)
[2022-07-07 14:59] LABS: U Amphetamine Screen Not Detected; U Barbituate Screen Not Detected; U Benzodiazapine Screen Not Detected; U Buprenorphine Screen Not Detected; U Cannabinoids Screen Not Detected; U Cocaine Screen Not Detected; U Methadone Screen Not Detected; U Methamphetamine Screen Not Detected; U Opiates Screen Not Detected; U Oxycodone Screen Not Detected; U Phencyclidine Screen Not Detected; U Propoxyphene Screen Not Detected
[2022-07-07 17:10] VITALS: BP 112/48
[2022-07-07] MEDS ORDERED: ALDACTONE100 MG PO (18:29)
[2022-07-07] MEDS ORDERED: HYDHCL25 PO (18:29)
[2022-07-07] MEDS ORDERED: LACT10SY PO (18:30)
[2022-07-07] MEDS ORDERED: LASIX40 MG PO (18:30)
[2022-07-07] MEDS ORDERED: ATOR10 PO (18:30)
--- NOTE | 2022-07-07 18:52 | NUR ---
ADMIT: PT ADMITTED TO [facility] @1700 VIA GURNEY. PT ABLE TO GIVE YES/NO ANSWERS BUT NOT ABLE TO ANSWER ANY QUESTIONS. SHRUTI BROUGHT IN BY SISTER WHO LEFT BEFORE ADMISSION. PT HAS TYPE 2 DIABETES NORMALLY CONTROLLED AT HOME BY WHAT THE SISTER BELIEVES IS GLIPIZIDE. PT INCONTINENT AND CHANGED UPON ARRIVAL. PT HAS 2 IVS IN R AND L AC. IV'S BOTH PATENT AND SALINE LOCKED. PT TO RECEIVE LACTULOSE 4 TIMES A DAY. CALL LIGHT IN REACH. BED IN LOWEST POSITION. WILL CONTINUE TO MONITOR.
[2022-07-07 20:15] VITALS: BP 119/71
[2022-07-08 02:05] VITALS: BP 104/54
[2022-07-08 06:03] LABS: Albumin, Blood 2.7 g/dL (3.4-5.0); Albumin/Globulin Ratio 0.8 (0.8-1.8); Bun/Creatinine Ratio 56.6 (12.0-20.0); Calcium, Blood 9.9 mg/dL (8.5-10.1); Creatinine, Blood 1.36 mg/dL (0.40-1.00); Globulin, Blood 3.5 g/dL (2.2-4.0); Potassium, Blood 4.8 mmol/L (3.5-5.5); Total Protein, Blood 6.2 g/dL (6.4-8.2)
--- NOTE | 2022-07-08 06:05 | NUR ---
SHIFT SUMMARY PT LAYING IN BED DURING BEDSIDE REPORT- PT OPENS EYES WHEN TALKING TO BUT UNALBE TO FOLLOW DIRECTION- PT UNABLE TO TAKE PO MEDICATIONS D/T BEING LETHARGIC- CALL TO DR. AYOUB NOTIFIED OF DAYSHIFT RN UNABLE TO GIVE RIFAXIM AND LACTALOSE AND PT CONTINUES TO NOT BE ABLE TO TAKE MEDICATION- NEW ORDER FOR LACTALOSE ENEMA- PT TOLERATED ENEMA WELL PT HAD LARGE BM WITH FIRST BRIEF CHANGING- CALL LIGHT WITHIN REACH, PT REPOSITIONED Q2H, BED LOW POSITION, BED ALARM IN PLACE
[2022-07-08 07:32] VITALS: BP 117/41
[2022-07-08 09:09] LABS: International Normalized Ratio 1.21; Prothrombin Time Results 12.6 Sec (9.7-11.5)
[2022-07-08 15:23] VITALS: BP 133/55
--- NOTE | 2022-07-08 17:22 | NUR ---
PATIENT MUCH MORE ALERT THROUGOUT THE DAY, A/OX 2-3 . ABLE TO WAKE UP AND WAS ALERT ENOUGH TO EAT LUNCH WITH ASSIST. UP TO BSC WITH 1 ASSIST. SKIN INTACT. WORKED WITH PT TODAY. VSS, ON RA. LACTULOSE ENEMAS CHANGED TO PO. PATIENT ABLE TO SWALLOW PILLS WITHOUT DIFFICULTY. NO NEW CONCERNS THIS SHIFT. PLEASANT AND COOPERATIVE WITH CARE. FALL PRECAUTIONS IN PLACE.
[2022-07-08 20:55] VITALS: BP 176/66
--- NOTE | 2022-07-09 04:17 | NUR ---
SHIFT SUMMARY PATIENT UP TO BSC WITH ONE ASSIST T/O SHIFT, ON LACTULOSE HAVING LOOSE STOOLS. AXOX 3 WITH IMPROVEMENT IN MENTATION MAKING NEEDS KNOWN AND USING CALL LIGHT. DENIES CHEST PAIN, SOB, AND N/V. VSS/AFEBRILE. PIVS REMAIN INTACT. ON ROOM AIR. CALL LIGHT IN REACH. BED IN LOWEST POSITION. WILL CONTINUE TO MONITOR UNTIL DAY SHIFT NURSE ASSUMES CARE.
[2022-07-09 04:24] VITALS: BP 148/56
[2022-07-09 07:17] VITALS: BP 148/63
[2022-07-09 15:59] VITALS: BP 164/78
--- NOTE | 2022-07-09 17:20 | NUR ---
SHIFT SUMMARY NO ACUTE CHANGES DURING SHIFT. PT ALERT AND ORIENTED, CALLS APPRORPIATELY. PT SBA WITH WALKER TO BATHROOM AND IN HALLS. PT REMAINS ON RA. LACTULOSE TID. POSSIBLE D/C WITH HOME HEALTH SOON. WILL CONTINUE TO MONITOR. CALL LIGHT WITHIN REACH.
[2022-07-09 19:57] VITALS: BP 167/81
[2022-07-10 06:18] LABS: Bun/Creatinine Ratio 36.6 (12.0-20.0); Calcium, Blood 9.7 mg/dL (8.5-10.1); Creatinine, Blood 1.12 mg/dL (0.40-1.00); Potassium, Blood 4.8 mmol/L (3.5-5.5)
[2022-07-10 06:40] VITALS: BP 143/77
[2022-07-10 07:35] VITALS: BP 139/68
[2022-07-10] MEDS ORDERED: RIFA550T2 PO (10:00)
--- NOTE | 2022-07-10 10:36 | NUR ---
DISCHARGE SUMMARY DISCHARGE, FOLLOWUP, AND MEDICATION INSTRUCTIONS GIVEN TO PT. PT VOICED COMPLETE UNDERSTANDING AND HAS NO QUESTIONS AT THIS TIME. IV'S REMOVED WITH CATHETER TIP INTACT. AWAITING PTS RIDE TO ARRIVE. WILL CONTINUE TO MONITOR UNTIL PTS RIDE ARRIVES. CALL LIGHT WITHIN REACH.
== END 2022-07-10 11:27 | disposition home health service (06) | DRG 442 ==
LOC: ER 12:35 → MEDS 15:30 → ENPENDDIS 07-10 09:11 → MEDS 07-10 11:27
PROVIDERS: Student in an Organized Health Care Education/Training Program; ADMIT Internal Medicine
DX: K76.82 Hepatic encephalopathy (principal); E87.20 Acidosis, unspecified; N17.9 Acute kidney failure, unspecified; K74.60 Unspecified cirrhosis of liver; D69.6 Thrombocytopenia, unspecified; E88.89 Other specified metabolic disorders; I25.10 Atherosclerotic heart disease of native coronary artery without angina pectoris; I12.9 Hypertensive chronic kidney disease with stage 1 through stage 4 chronic kidney disease, or unspecified chronic kidney disease; N18.30 Chronic kidney disease, stage 3 unspecified; K75.81 Nonalcoholic steatohepatitis (NASH); E11.65 Type 2 diabetes mellitus with hyperglycemia; E11.22 Type 2 diabetes mellitus with diabetic chronic kidney disease; I25.2 Old myocardial infarction; Z88.8 Allergy status to other drugs, medicaments and biological substances; Z88.1 Allergy status to other antibiotic agents; Z87.891 Personal history of nicotine dependence; Z95.5 Presence of coronary angioplasty implant and graft; Z79.02 Long term (current) use of antithrombotics/antiplatelets; Z79.82 Long term (current) use of aspirin; Z79.899 Other long term (current) drug therapy
CPT/HCPCS: 36415; 80048; 80053; 80076; 81003; 82140; 82803; 83735; 84145; 85025; 85610; 93005; 93010; 94760; 97110; 97116; 97162; 97530; 99285-25; A9270; C9113; G0378; G0480; J2405; J7030

== ENCOUNTER 2022-07-27 08:36 | Day surgery (SDC) | payer OTHER ==
[~2022-07-27 08:36] MED LIST changes: +ALDACTONE100 MG PO; +HYDHCL25 PO; +LACT10SY PO; +LASIX40 MG PO; +RIFA550T2 PO
[2022-07-27 09:56] VITALS: BP 113/35
[2022-07-27 10:43] VITALS: BP 111/45
--- NOTE | 2022-07-27 10:56 | NUR ---
PT DISCHARGED AT 1045 WITH BELONGINGS VIA W/C TO PRIVATE CAR ACCOMPANIED BY RN AND PT'S SISTER.
== END 2022-07-27 22:45 | disposition home or self-care (01) ==
LOC: US 08:36
DX: K74.60 Unspecified cirrhosis of liver (principal); R18.8 Other ascites
CPT/HCPCS: 49083; P9047

== ENCOUNTER → 2022-08-17 | Day surgery (SDC) | payer OTHER ==
[2022-08-17 11:24] VITALS: BP 97/57
--- NOTE | 2022-08-17 11:26 | NUR ---
PT DISCHARGE PT IN FOR PARA W/ALBUMIN. 25GMS GIVEN THROUGH IV. VSS. PUNCTURE SITE WNL, NO PAIN. PT TO PRIVATE VEHICLE WITH SISTER BY THIS RN BY WHEELCHAIR WITH ALL BELONGINGS.
== END ==
LOC: US 08-14 09:00
DX: R18.8 Other ascites (principal); K74.60 Unspecified cirrhosis of liver
CPT/HCPCS: 49083; P9047

== ENCOUNTER 2022-09-11 13:34 | Day surgery (SDC) | payer OTHER ==
[~2022-09-11 13:34] MED LIST changes: +Kristalose20 GM PO
[2022-09-11 15:30] VITALS: BP 132/57
--- NOTE | 2022-09-11 16:59 | NUR ---
1530 PATIENT ARRIVED FROM IMAGING FOR ALBUMIN. AFTER 1.5 HRS PATIENT HAD HAD MULTIPLE IV ATTEMPTS WITH ULTRASOUND WITHUT SUCCESS. NOTIFIED DR STEWART THAT WE'VE BEEN UNABLE TO SUCCESSFULLY START AN IV. ER NURSE ROXANNE DOWN TO START IV NOW. DR AYALA SAID THAT SHE WOULD LIKE THE PATIENT TO GO TO THE ER IF UNABLE TO START AN IV.
== END 2022-09-11 18:33 | disposition home or self-care (01) ==
LOC: US 13:34 → ATC 13:34
DX: K74.60 Unspecified cirrhosis of liver (principal); R18.8 Other ascites; I25.2 Old myocardial infarction; E11.9 Type 2 diabetes mellitus without complications; I10 Essential (primary) hypertension
CPT/HCPCS: 49083; 96365; P9047

== ENCOUNTER → 2022-09-14 | Outpatient (CLI) | payer OTHER ==
[2022-09-14 14:26] LABS: Stool Occult Bld Immuno 1 Negative (NEGATIVE)
== END | disposition home or self-care (01) ==
LOC: LAB SHORT 13:53 → LAB 13:53
PROVIDERS: Student in an Organized Health Care Education/Training Program
DX: C78.7 Secondary malignant neoplasm of liver and intrahepatic bile duct (principal); C78.00 Secondary malignant neoplasm of unspecified lung; C80.1 Malignant (primary) neoplasm, unspecified; I50.9 Heart failure, unspecified; J98.4 Other disorders of lung
CPT/HCPCS: 82274

== ENCOUNTER → 2022-09-16 | Outpatient (CLI) | payer OTHER ==
[2022-09-16 16:51] LABS: Albumin, Blood 3.3 g/dL (3.4-5.0); Albumin/Globulin Ratio 0.9 (0.8-1.8); Bilirubin, Total 0.8 mg/dL (0.1-1.0); Bun/Creatinine Ratio 51.3 (12.0-20.0); Calcium, Blood 9.2 mg/dL (8.5-10.1); Creatinine, Blood 1.17 mg/dL (0.40-1.00); Globulin, Blood 3.6 g/dL (2.2-4.0); Potassium, Blood 4.4 mmol/L (3.5-5.5); Total Protein, Blood 6.9 g/dL (6.4-8.2)
[2022-09-16 17:09] LABS: BASOPHILS ABSOLUTE AUTO 0.03 K/mm3 (0.00-0.23); BASOPHILS PERCENT AUTO 1 % (0-2); EOSINOPHILS ABSOLUTE AUTO 0.05 K/mm3 (0.00-0.68); EOSINOPHILS PERCENT AUTO 1 % (0-6); Hematocrit 28.6 % (33.0-51.0); Hemoglobin 9.5 g/dL (11.5-16.0); IMMATURE GRAN ABSOLUTE AUTO 0.01 K/mm3 (0.00-0.10); IMMATURE GRAN PERCENT AUTO 0 % (0-1); LYMPHOCYTES PERCENT AUTO 10 % (21-46); MONOCYTES PERCENT AUTO 8 % (4-13); Mean Corpuscular HGB 31.8 pg (26.0-34.0); Mean Corpuscular HGB Conc 33.2 g/dL (31.5-36.5); Mean Corpuscular Volume 96 fL (80-100); Mean Platelet Volume 11.1 fL (9.1-12.4); NEUTROPHILS ABSOLUTE AUTO 4.78 K/mm3 (1.96-9.15); NEUTROPHILS PERCENT AUTO 80 % (41-73); Platelet Count 197 K/mm3 (150-400); RDW Coefficient Variation 13.9 % (11.7-14.2); RDW Standard Deviation 49.2 fL (35.1-46.3); Red Blood Cell Count 2.99 M/mm3 (3.80-5.20); White Blood Cell Count 5.97 K/mm3 (4.00-11.30)
[2022-09-16 17:14] LABS: International Normalized Ratio 1.19; Prothrombin Time Results 12.4 Sec (9.7-11.5)
== END | disposition home or self-care (01) ==
LOC: LAB 15:30 → LAB SHORT 15:30
PROVIDERS: Nurse Practitioner
DX: R91.8 Other nonspecific abnormal finding of lung field (principal); R97.0 Elevated carcinoembryonic antigen [CEA]; D68.52 Prothrombin gene mutation; R79.9 Abnormal finding of blood chemistry, unspecified
CPT/HCPCS: 80053; 82378; 85025; 85610; 85730

== ENCOUNTER 2022-10-19 08:35 | Day surgery (SDC) | payer OTHER | END 2022-10-19 13:00 | disposition home or self-care (01) | LOC: US 08:35 → SURS 10:06 | DX: K74.60 Unspecified cirrhosis of liver (principal); R18.8 Other ascites ==

== ENCOUNTER 2022-10-21 19:26 | Emergency (ER) | payer OTHER ==
[~2022-10-21] VITALS: Ht 154.9 cm; Wt 63.5 kg
[2022-10-21 20:00] LABS: BASOPHILS ABSOLUTE AUTO 0.02 K/mm3 (0.00-0.23); BASOPHILS PERCENT AUTO 0 % (0-2); EOSINOPHILS ABSOLUTE AUTO 0.02 K/mm3 (0.00-0.68); EOSINOPHILS PERCENT AUTO 0 % (0-6); Hematocrit 30.8 % (33.0-51.0); Hemoglobin 10.6 g/dL (11.5-16.0); IMMATURE GRAN ABSOLUTE AUTO 0.02 K/mm3 (0.00-0.10); IMMATURE GRAN PERCENT AUTO 0 % (0-1); LYMPHOCYTES ABSOLUTE AUTO 0.53 K/mm3 (0.84-5.20); LYMPHOCYTES PERCENT AUTO 7 % (21-46); MONOCYTES ABSOLUTE AUTO 0.44 K/mm3 (0.16-1.47); MONOCYTES PERCENT AUTO 6 % (4-13); Mean Corpuscular HGB 30.5 pg (26.0-34.0); Mean Corpuscular HGB Conc 34.4 g/dL (31.5-36.5); Mean Corpuscular Volume 89 fL (80-100); Mean Platelet Volume 10.9 fL (9.1-12.4); NEUTROPHILS ABSOLUTE AUTO 6.26 K/mm3 (1.96-9.15); NEUTROPHILS PERCENT AUTO 86 % (41-73); Platelet Count 161 K/mm3 (150-400); RDW Coefficient Variation 12.8 % (11.7-14.2); RDW Standard Deviation 41.4 fL (35.1-46.3); Red Blood Cell Count 3.47 M/mm3 (3.80-5.20); White Blood Cell Count 7.29 K/mm3 (4.00-11.30)
[2022-10-21 20:23] LABS: Albumin, Blood 3.3 g/dL (3.4-5.0); Bilirubin, Total 0.7 mg/dL (0.1-1.0); Bun/Creatinine Ratio 39.7 (12.0-20.0); Calcium, Blood 9.7 mg/dL (8.5-10.1); Creatinine, Blood 1.16 mg/dL (0.40-1.00); Globulin, Blood 3.4 g/dL (2.2-4.0); Potassium, Blood 4.6 mmol/L (3.5-5.5); Total Protein, Blood 6.7 g/dL (6.4-8.2)
[2022-10-21 22:45] LABS: Source, Urine Clean Catch
[2022-10-21 22:59] LABS: Appearance, Urine Clear (Clear); Bilirubin, Urine Neg (Neg); Blood, Urine Neg (Neg); Color, Urine Yellow (P-Yellow); Glucose Qualitative, Urine 3+ (Neg); Ketones, Urine Neg (Neg); Leukocyte Esterase, Urine Neg (Neg); Nitrite, Urine Neg (Neg); Protein, Urine Neg (Neg); Urobilinogen, Urine NORM (Normal)
[2022-10-21 23:15] VITALS: BP 147/76
== END 2022-10-22 00:05 | disposition home or self-care (01) ==
LOC: ER 19:26
PROVIDERS: Student in an Organized Health Care Education/Training Program
DX: E86.0 Dehydration (principal); E11.65 Type 2 diabetes mellitus with hyperglycemia; Z88.8 Allergy status to other drugs, medicaments and biological substances; Z88.1 Allergy status to other antibiotic agents; Z79.899 Other long term (current) drug therapy; Z79.82 Long term (current) use of aspirin; I25.2 Old myocardial infarction; I10 Essential (primary) hypertension; Z87.891 Personal history of nicotine dependence
CPT/HCPCS: 80053; 81003; 82140; 85025; 93005; 93010; 96374; 99284-25; J2405; J7030

== ENCOUNTER 2022-11-04 12:30 | Emergency (ER) | payer OTHER ==
[~2022-11-04] VITALS: Ht 154.9 cm; Wt 47.2 kg
[2022-11-04 12:59] LABS: BASOPHILS ABSOLUTE AUTO 0.03 K/mm3 (0.00-0.23); BASOPHILS PERCENT AUTO 0 % (0-2); EOSINOPHILS ABSOLUTE AUTO 0.02 K/mm3 (0.00-0.68); EOSINOPHILS PERCENT AUTO 0 % (0-6); Hematocrit 34.1 % (33.0-51.0); Hemoglobin 11.4 g/dL (11.5-16.0); IMMATURE GRAN ABSOLUTE AUTO 0.03 K/mm3 (0.00-0.10); IMMATURE GRAN PERCENT AUTO 0 % (0-1); LYMPHOCYTES ABSOLUTE AUTO 0.77 K/mm3 (0.84-5.20); LYMPHOCYTES PERCENT AUTO 9 % (21-46); MONOCYTES ABSOLUTE AUTO 0.41 K/mm3 (0.16-1.47); MONOCYTES PERCENT AUTO 5 % (4-13); Mean Corpuscular HGB 29.8 pg (26.0-34.0); Mean Corpuscular HGB Conc 33.4 g/dL (31.5-36.5); Mean Corpuscular Volume 89 fL (80-100); Mean Platelet Volume 10.9 fL (9.1-12.4); NEUTROPHILS ABSOLUTE AUTO 7.59 K/mm3 (1.96-9.15); NEUTROPHILS PERCENT AUTO 86 % (41-73); Platelet Count 208 K/mm3 (150-400); RDW Coefficient Variation 13.5 % (11.7-14.2); RDW Standard Deviation 44.1 fL (35.1-46.3); Red Blood Cell Count 3.82 M/mm3 (3.80-5.20); White Blood Cell Count 8.85 K/mm3 (4.00-11.30)
[2022-11-04 13:23] LABS: Albumin, Blood 3.2 g/dL (3.4-5.0); Albumin/Globulin Ratio 0.8 (0.8-1.8); Bilirubin, Total 0.7 mg/dL (0.1-1.0); Bun/Creatinine Ratio 38.8 (12.0-20.0); Calcium, Blood 10.1 mg/dL (8.5-10.1); Creatinine, Blood 1.16 mg/dL (0.40-1.00); Globulin, Blood 4.1 g/dL (2.2-4.0); Potassium, Blood 4.8 mmol/L (3.5-5.5); Total Protein, Blood 7.3 g/dL (6.4-8.2)
[2022-11-04 15:43] VITALS: BP 133/64
== END 2022-11-04 15:32 | disposition home or self-care (01) ==
LOC: ER 12:30
PROVIDERS: Emergency Medicine
DX: K59.00 Constipation, unspecified (principal); S80.02XA Contusion of left knee, initial encounter; W18.30XA Fall on same level, unspecified, initial encounter; E11.9 Type 2 diabetes mellitus without complications; I10 Essential (primary) hypertension; Z95.5 Presence of coronary angioplasty implant and graft; Z87.891 Personal history of nicotine dependence; Z88.8 Allergy status to other drugs, medicaments and biological substances; Z88.1 Allergy status to other antibiotic agents; Z79.899 Other long term (current) drug therapy
CPT/HCPCS: 71046; 73562-LT; 80053; 84484; 85025; 93005; 93010; 99284-25

== ENCOUNTER 2022-11-10 08:59 | Day surgery (SDC) | payer OTHER | END 2022-11-10 22:42 | disposition home or self-care (01) | LOC: US 08:59 | DX: K74.60 Unspecified cirrhosis of liver (principal); R18.8 Other ascites | CPT/HCPCS: 49083; P9047 ==

== ENCOUNTER 2022-11-21 01:35 | Observation (INO) | payer OTHER ==
[~2022-11-21] VITALS: Ht 154.9 cm; Wt 47.0 kg
[2022-11-21 02:13] LABS: BASOPHILS ABSOLUTE AUTO 0.03 K/mm3 (0.00-0.23); BASOPHILS PERCENT AUTO 0 % (0-2); EOSINOPHILS ABSOLUTE AUTO 0.13 K/mm3 (0.00-0.68); EOSINOPHILS PERCENT AUTO 2 % (0-6); Hematocrit 32.1 % (33.0-51.0); Hemoglobin 10.8 g/dL (11.5-16.0); IMMATURE GRAN ABSOLUTE AUTO 0.02 K/mm3 (0.00-0.10); IMMATURE GRAN PERCENT AUTO 0 % (0-1); LYMPHOCYTES ABSOLUTE AUTO 0.71 K/mm3 (0.84-5.20); LYMPHOCYTES PERCENT AUTO 9 % (21-46); MONOCYTES PERCENT AUTO 8 % (4-13); Mean Corpuscular HGB 29.3 pg (26.0-34.0); Mean Corpuscular HGB Conc 33.6 g/dL (31.5-36.5); Mean Corpuscular Volume 87 fL (80-100); NEUTROPHILS PERCENT AUTO 81 % (41-73); Platelet Count 173 K/mm3 (150-400); RDW Standard Deviation 44.7 fL (35.1-46.3); Red Blood Cell Count 3.69 M/mm3 (3.80-5.20); White Blood Cell Count 7.79 K/mm3 (4.00-11.30)
[2022-11-21 02:32] LABS: Albumin/Globulin Ratio 0.8 (0.8-1.8); Bilirubin, Total 0.9 mg/dL (0.1-1.0); Bun/Creatinine Ratio 38.2 (12.0-20.0); Calcium, Blood 10.5 mg/dL (8.5-10.1); Creatinine, Blood 1.31 mg/dL (0.40-1.00); Globulin, Blood 3.8 g/dL (2.2-4.0); Potassium, Blood 4.4 mmol/L (3.5-5.5); Total Protein, Blood 6.8 g/dL (6.4-8.2)
[2022-11-21 05:32] VITALS: BP 116/71
--- NOTE | 2022-11-21 06:03 | NUR ---
PATIENT IS A NEW ADMIT FROM THE ED. THREE PERSON TRANSFER FROM [facility] TO BED. ALERT TO SELF AND BEDREST. ON ROOM AIR. DENIES CHEST PAIN, SOB, AND N/V. NO FAMILY PRESENT ON ADMIT. NS STARTED @ 75 mL/HR. ORIENTED TO ROOM AND CALL LIGHT SYSTEM. PATIENT WANTING TO SLEEP AFTER ASSESSMENT. SCATTER BRUISING FROM GLF AT HOME. BED ALARM ACTIVATED FOR FALL RISK. WCTM.
[2022-11-21 07:28] VITALS: BP 136/73
--- NOTE | 2022-11-21 09:00 | NUR ---
Pt laying in bed, a/ox2-3, cooperative with care, is very lethargic, no appetite, needed assist to take her lactulose and sips of ensure. Dr. Woodall was in to see her, plan for surg in am, for tube placement, infusing ns at 75mls/hr, call light in reach.
--- NOTE | 2022-11-21 16:11 | NUR ---
pt daughter spoke with this nurse several times about pt being very uncomfortable, and right hip hurting, called Dr. Narvaez, she ordered fentanyl and will come speak to family. 25mcg given, pt resting with eyes closed at this time. no signs of distress, call light in reach.
--- NOTE | 2022-11-21 19:16 | NUR ---
family decided to not have surg in am and take pt home on hospice, possibly will happen tomorrow, pt still sleepy after fentanyl given for pain, but has been more comfortable. no further changes this shift. call light in reach.
[2022-11-21 19:40] VITALS: BP 136/65
--- NOTE | 2022-11-21 21:48 | NUR ---
HOSPITALIST JONNATHAN LOPEZ ORDERED FENTANYL PATCH 25 MCG FOR RIGHT HIP PAIN AND PO ATIVAN 1 MG FOR ANXIETY PER PALLIATIVE CALL FROM AUTOMOTIVE WELDER DREA VOSS. AUTOMOTIVE WELDER REPORTS WANTS PAIN MANAGEMENT FOR DC ON HOSPICE TOMORROW. FAMILY IN ROOM.
--- NOTE | 2022-11-22 00:45 | NUR ---
PATIENT ANXIOUS AND TRYING TO GET OUT OF BED. REPORTING "I WANT TO GO HOME." PATIENT PULLED GOWN OFF X SIX. PULLING COVERS OFF AND SLIDING DOWN BED. PATIENT GOWN REMOVED PER FAMILY MEMBER. PO ATIVAN 1 MG GIVEN PER EMAR. FAMILY MEMBERS X TWO STAYING OVERNIGHT. RECLINER,PILLOWS, & COVERS PROVIDED FOR FAMILY. PATIENT REPOSITIONED AND COVERED. WCTM.
--- NOTE | 2022-11-22 04:25 | NUR ---
SHIFT SUMMARY PATIENT HAD NO ACUTE CHANGES. AXOX 2, BEDREST, AND VERY LETHARGIC. PIV REMAINS INTACT. NS INFUSING AT 75mL/HR. NO S/SX OF CHEST PAIN, SOB, AND N/V. PATIENT VERY ANXIOUS AND WANTING TO LEAVE. PO ATIVAN 1 MG GIVEN FOR ANXIETY. MEDS TAKEN WITH APPLESAUCE. VSS/AFEBRILE. CBG 295. FAMILY MEMBERS X TWO STAYED IN ROOM T/O SHIFT. POSSIBLE DC ON HOSPICE TODAY. CALL LIGHT IN REACH. BED IN LOWEST POSITION AND ALARM ACTIVATED. WILL CONTINUE TO MONITOR UNTIL DAY SHIFT NURSE ASSUMES CARE.
[2022-11-22 05:20] VITALS: BP 165/75
[2022-11-22 07:31] VITALS: BP 166/70
--- NOTE | 2022-11-22 15:50 | NUR ---
PT DISCHARGED HOME WITH HOSPICE. FAMILY AT BEDSIDE. PREMEDICATED PT FOR TRANSPORT. PT REACTED TO PHYSICAL STIMULI HOWEVER NO CONVERSATION. UNSAFE TO GIVE PO MEDICATIONS. PT DID NOT EAT OR DRINK THIS SHIFT.
== END 2022-11-22 14:29 | disposition hospice, home (50) ==
LOC: ER 01:35 → MEDS 01:36
PROVIDERS: Emergency Medicine; ADMIT Internal Medicine
DX: K76.82 Hepatic encephalopathy (principal); M25.551 Pain in right hip; K74.60 Unspecified cirrhosis of liver; I25.10 Atherosclerotic heart disease of native coronary artery without angina pectoris; N18.30 Chronic kidney disease, stage 3 unspecified; E87.1 Hypo-osmolality and hyponatremia; E11.22 Type 2 diabetes mellitus with diabetic chronic kidney disease; K59.00 Constipation, unspecified; C25.9 Malignant neoplasm of pancreas, unspecified; I25.2 Old myocardial infarction; Z95.5 Presence of coronary angioplasty implant and graft; Z87.891 Personal history of nicotine dependence; I12.9 Hypertensive chronic kidney disease with stage 1 through stage 4 chronic kidney disease, or unspecified chronic kidney disease; Z88.1 Allergy status to other antibiotic agents; Z88.8 Allergy status to other drugs, medicaments and biological substances
CPT/HCPCS: 51798; 73502; 74018; 80053; 82140; 82947; 83690; 85025; 94760; 96374; 99285-25; A9270; C9113; G0378; J3010; J7030